=== PATIENT | female | born 1965 | race Caucasian/White ===

== ENCOUNTER 2019-11-29 00:45 | Emergency (ER) | payer OTHER ==
[~2019-11-29] VITALS: Ht 154.9 cm; Wt 62.6 kg
[~2019-11-29 00:45] MED LIST: ACET-3102 PO; ACET-9533; ATI2I PO; CARI350T PO; LORA1TAB7; PAX20 PO
[2019-11-29 00:49] VITALS: BP 119/72
--- NOTE | 2019-11-29 00:54 | NUR ---
PT AMBULATED TO BED #9
--- NOTE | 2019-11-29 01:05 | NUR ---
AT BEDSIDE EXAMING PT
--- NOTE | 2019-11-29 01:09 | NUR ---
54 Y/O FEMALE C/O ANXIETY AND UNABLE TO SLEEP FOR THE PAST THREE DAYS. NO TRAUMA. PT STATES TOOK TRAMADOL YESTERDAY FOR FIBROMYALGIA PAIN . VSS. BED LOW AND LOCKED , 1 SIDERAIL UP. DENIES N/V/D; SKIN IS PINK/WARM/DRY; AAOX4 WITH EVEN AND STEADY GAIT; PT DENIES ANY FEVER, CP, SOB, OR COUGH AT THIS TIME; PATIENT STATES PAIN OF 0/10 AT THIS TIME; PATIENT POSITIONED FOR COMFORT; HOB ELEVATED; BED DOWN. ER MD MADE AWARE OF PT STATUS. MEDICAL HX: FIBROMYALGIA, DEMENTIA, GERD, DEPRESSION NKA
== END 2019-11-29 01:16 | disposition home or self-care (01) ==
LOC: MED 00:45
DX: F41.9 Anxiety disorder, unspecified (principal); F32.9 Major depressive disorder, single episode, unspecified; I10 Essential (primary) hypertension; K21.9 Gastro-esophageal reflux disease without esophagitis; Z79.899 Other long term (current) drug therapy
CPT/HCPCS: 99283